=== PATIENT | female | born 1950 | race Caucasian/White ===

== ENCOUNTER → 2016-12-02 | Outpatient (CLI) | payer OTHER | LOC: FIMAGING 09:48 | PROVIDERS: ATTEND Specialist | DX: N28.89 Other specified disorders of kidney and ureter (principal); K80.20 Calculus of gallbladder without cholecystitis without obstruction ==

== ENCOUNTER → 2017-07-26 | Outpatient (CLI) | payer OTHER | LOC: BMCIMAGING 13:32 | PROVIDERS: ATTEND Internal Medicine Rheumatology | DX: R05 Cough (principal) ==

== ENCOUNTER → 2017-08-19 | Outpatient (CLI) | payer OTHER | LOC: FIMAGING 11:07 | PROVIDERS: ATTEND Surgery | DX: Z12.31 Encounter for screening mammogram for malignant neoplasm of breast (principal); Z80.3 Family history of malignant neoplasm of breast | CPT/HCPCS: G0202 ==

== ENCOUNTER → 2017-10-27 | Outpatient (CLI) | payer OTHER | LOC: BMCIMAGING 14:59 | PROVIDERS: ATTEND Internal Medicine Rheumatology | DX: M18.0 Bilateral primary osteoarthritis of first carpometacarpal joints (principal); M19.041 Primary osteoarthritis, right hand; M19.042 Primary osteoarthritis, left hand; M85.441 Solitary bone cyst, right hand; M85.442 Solitary bone cyst, left hand ==

== ENCOUNTER → 2017-12-16 | Outpatient (CLI) | payer OTHER | LOC: BMCIMAGING 15:12 | PROVIDERS: ATTEND Specialist | DX: C64.2 Malignant neoplasm of left kidney, except renal pelvis (principal) ==

== ENCOUNTER → 2018-01-19 | Outpatient (CLI) | payer OTHER ==
[~2018-01-19] MED LIST: IOPAMIDOL (ISOVUE-300) 100 ML BTL ONE
== END ==
LOC: FIMAGING 11:45
PROVIDERS: ATTEND Specialist
DX: N28.89 Other specified disorders of kidney and ureter (principal); K80.20 Calculus of gallbladder without cholecystitis without obstruction
CPT/HCPCS: 74170; Q9967

== ENCOUNTER → 2018-07-28 | Outpatient (CLI) | payer OTHER | LOC: BHFA 14:00 | PROVIDERS: ATTEND Internal Medicine Cardiovascular Disease | DX: R06.02 Shortness of breath (principal) | CPT/HCPCS: 78452; 93017; A9500 ==

== ENCOUNTER → 2018-07-29 | Outpatient (CLI) | payer OTHER | LOC: BHFA 11:30 | PROVIDERS: ATTEND Internal Medicine | DX: R06.02 Shortness of breath (principal) ==

== ENCOUNTER → 2018-08-16 | Outpatient (CLI) | payer OTHER | LOC: FIMAGING 13:34 | PROVIDERS: ATTEND Internal Medicine | DX: E04.2 Nontoxic multinodular goiter (principal) ==

== ENCOUNTER → 2018-08-30 | Outpatient (CLI) | payer OTHER | LOC: FIMAGING 14:53 | PROVIDERS: ATTEND Surgery | DX: Z12.31 Encounter for screening mammogram for malignant neoplasm of breast (principal); Z80.3 Family history of malignant neoplasm of breast ==

== ENCOUNTER → 2019-01-27 | Outpatient (CLI) | payer OTHER | LOC: FIMAGING 14:27 | PROVIDERS: ATTEND Specialist | DX: D41.02 Neoplasm of uncertain behavior of left kidney (principal) ==

== ENCOUNTER 2019-02-03 14:59 | Emergency (ER) | payer OTHER ==
--- NOTE | 2019-02-03 15:12 | EDPHY ---
H & P Stated Complaint: abd pain x2 week, shoulder/back pain since last night Time Seen by Provider: 02/03/19 15:12 - Personal History Current Tetanus/Diphtheria Vaccine: Yes Current Tetanus Diphtheria and Acellular Pertussis (TDAP): Yes - Medical/Surgical History Hx Asthma: No Hx Chronic Respiratory Disease: No Hx Diabetes: No Hx Cardiac Disease: No Hx Renal Disease: No Hx Cirrhosis: No Hx Alcoholism: No Hx HIV/AIDS: No Hx Splenectomy or Spleen Trauma: No Other PMH: RA, Factor 5, DVT after lumbar surgery in 2011 - Social History Smoking Status: Never smoked Constitutional: Initial Vital Signs Temperature (C) 36.4 C 02/03/19 15:01 Heart Rate 80 02/03/19 15:01 Respiratory Rate 16 02/03/19 15:01 Blood Pressure 144/86 H 02/03/19 15:01 O2 Sat (%) 98 02/03/19 15:01 O2 Delivery Mode Room Air Allergies/Adverse Reactions: No Known Allergies Allergy (Unverified 12/07/09 11:56) Home Medications: Medication Instructions Recorded Aspirin [Aspirin 81mg (*)] 81 mg PO DAILY 10/01/15 Calcium Carb W/Vit D [Calcium Carb 500 mg PO DAILY 10/01/15 W/Vit D 500/200 (*)] Cholecalciferol Vit D3 [Vitamin D3 2,000 units PO DAILY 10/01/15 2000 units] Herbals/Supplements -Info Only 1 ea PO DAILY 10/01/15 Lovastatin [Altoprev] 40 mg PO HS 10/01/15 Methotrexate Sodium [Rheumatrex] 12.5 mg PO WE 10/01/15 Parrott-3 Fatty Acids [Fish Oil 1000 1,000 mg PO DAILY 10/01/15 mg (*)] Medical Decision Making - Diagnostics Imaging Results: Imaging Impressions Abdomen CT 02/03/19 15:21 Impression: 1. Moderate constipation. No evidence for diverticulitis. 2. Cholelithiasis. 3. 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 4. Multilevel degenerative disk and degenerative joint disease in the lumbar spine. Results called and discussed with Otis Silva MD on 02/03/2019 at 16:10. Imaging: Discussed imaging studies w/ call or contact centre operator Radiologist, I viewed and interpreted images myself ED Course/Re-evaluation: CHIEF COMPLAINT: Abdominal pain, back pain HISTORY OF PRESENT ILLNESS: The patient is a 68 y/o female with a history of rheumatoid arthritis, Factor 5 Leiden, DVT, appendectomy, and lumbar surgery complaining of abdominal pain onset 2 days ago and back pain onset last night. For the last several weeks the patient has been travelling via plane and a car. During this travelling she developed an "aching" stomach without any nausea or vomiting. Starting last night at 17:00, 22 hours ago, she developed intermittent back pain for 3 hours. She became concerned that she developed a blood clot due to her clotting factor. No fever, headache, body aches, lightheadedness, chest pain, heart palpitations, shortness of breath, cough, urinary or bowel complaints, numbness , paresthesias. REVIEW OF SYSTEMS: A comprehensive 10 system review of systems is otherwise negative aside from elements mentioned in the history of present illness and medical decision making. PHYSICAL EXAM: HR, BP, O2 Sat, RR. Temp noted General Appearance: Alert, well hydrated, appropriate, and non-toxic appearing. Head: Atraumatic without scalp tenderness or obvious injury Eyes: Pupils equal, round, reactive to light and accommodation, EOMI, no trauma , no injection. Ears: Clear bilaterally, no perforation, normal landmarks Nose: Atraumatic, no rhinorrhea, clear. Throat: There is no erythema or exudates, no lesions, normal tonsils, mucus membranes moist. Neck: Supple, 2+ carotid upstroke, nontender, no lymphadenopathy. Respiratory: No retractions, no distress, no wheezes, and no accessory muscle use. Lungs are clear to auscultation bilaterally. Cardiovascular: Regular rate and rhythm, no murmurs, rubs, or gallops. Bilateral carotid, radial, dorsalis pedis, and posterior tibial pulses intact. Good capillary refill all extremities. Gastrointestinal: Mildly bloated abdomen. Abdomen is soft, nontender, no masses , no rebound, no guarding, no peritoneal signs. Musculoskeletal: Normal active ROM of all extremities, atraumatic. Neurological: Alert, appropriate, and interactive. The patient has normal DTRs and non-focal cranial nerves, motor, sensory, and cerebellar exam. Skin: No rashes, good turgor, no nodules on palpation. Past medical history: Rheumatoid arthritis, Factor 5 Leiden, DVT, gallstone Past surgical history: Lumbar surgery, appendectomy, hysterectomy Family history: Denies Social history: Lives in [place], retired, DIAGNOSTICS/PROCEDURES/CRITICAL CARE TIME: Abdominopelvic CT: No acute findings. Chest CTA: No acute findings. DIFFERENTIAL DIAGNOSIS: The differential diagnosis for the patient's back pain included but was not limited to musculoskeletal pain, epidural abscess, herniated disk, spinal fracture, and intra-abdominal causes including urinary system. The differential diagnosis for the patient's abdominal pain included but was not limited to ovarian cyst, pelvic inflammatory disease, ovarian torsion, urinary tract infection, ectopic , cholecystitis, and appendicitis. MEDICAL DECISION MAKING: The patient is a 68 y/o female with a history of rheumatoid arthritis, Factor 5 Leiden, DVT, appendectomy, and lumbar surgery presenting with abdominal pain onset 2 days ago and back pain onset last night. For the last several weeks the patient has been travelling via plane and a car. During this travelling she developed an "aching" stomach without any nausea or vomiting. Starting last night at 17:00, 22 hours ago, she developed intermittent back pain for 3 hours. She has a normal physial exam besides a bloated abdomen. Labs ordered including a d-dimer, which will be sensitive for a possible clot. Abdominopelvic CT ordered; 1L IV NS administered. 1608: I spoke with Dr. Aden, radiologist, regarding this patient's abdominopelvic CT. There are no acute findings. However, after reviewing patient 's labs she has an elevated d-dimer. Chest CTA ordered. 1705: I spoke with Dr. Sylvester, radiologist, who reports that there are no acute findings on the patient's chest CTA. There are no additional abnormal lab findings. 1710: Reassessed patient and discussed imaging and laboratory findings. I have advised her to follow up with her PCP. Return precautions provided; patient is comfortable with this plan. - Data Points Laboratory Results: Laboratory Results 02/03/19 15:25 02/03/19 15:25 02/03/19 02/03/19 02/03/19 15:33 15:32 15:25 WBC RBC Hgb POC Hgb 14.6 gm/dL gm/dL (12.6-16.3) Hct POC Hct 43 % % (38-47) MCV MCH MCHC RDW Plt Count MPV Neut % (Auto) Lymph % (Auto) [place] % (Auto) Eos % (Auto) Baso % (Auto) Nucleat RBC Rel Count Absolute Neuts (auto) Absolute Lymphs (auto) Absolute Monos (auto) Absolute Eos (auto) Absolute Basos (auto) Absolute Nucleated RBC Immature Gran % Immature Gran # D-Dimer 1.39 ug/mLFEU H ug/mLFEU (0.00-0.50) POC Sodium 140 mEq/L mEq/L (135-145) Sodium POC Potassium 3.9 mEq/L mEq/L (3.3-5.0) Potassium POC Chloride 105 mEq/L mEq/L (97-110) Chloride Carbon Dioxide POC Total CO2 25 mEq/L mEq/L (22-31) Anion Gap POC BUN 20 mg/dL mg/dL (7-23) BUN Creatinine POC Creatinine 0.8 mg/dL mg/dL (0.6-1.0) Estimated GFR Glucose POC Glucose 104 mg/dL H mg/dL (70-100) Calcium Magnesium Total Bilirubin Conjugated Bilirubin Unconjugated Bilirubin AST ALT Alkaline Phosphatase POC Troponin I 0.00 ng/mL ng/mL (0.00-0.08) Total Protein Albumin Lipase 02/03/19 02/03/19 15:25 15:25 WBC 4.74 10^3/uL 10^3/uL (3.80-9.50) RBC 4.38 10^6/uL 10^6/uL (4.18-5.33) Hgb 14.2 g/dL g/dL (12.6-16.3) POC Hgb Hct 41.9 % % (38.0-47.0) POC Hct MCV 95.7 fL fL (81.5-99.8) MCH 32.4 pg pg (27.9-34.1) MCHC 33.9 g/dL g/dL (32.4-36.7) RDW 13.3 % % (11.5-15.2) Plt Count 206 10^3/uL 10^3/uL (150-400) MPV 10.6 fL fL (8.7-11.7) Neut % (Auto) 51.5 % % (39.3-74.2) Lymph % (Auto) 34.4 % % (15.0-45.0) [place] % (Auto) 10.8 % % (4.5-13.0) Eos % (Auto) 2.5 % % (0.6-7.6) Baso % (Auto) 0.4 % % (0.3-1.7) Nucleat RBC Rel Count 0.0 % % (0.0-0.2) Absolute Neuts (auto) 2.44 10^3/uL 10^3/uL (1.70-6.50) Absolute Lymphs (auto) 1.63 10^3/uL 10^3/uL (1.00-3.00) Absolute Monos (auto) 0.51 10^3/uL 10^3/uL (0.30-0.80) Absolute Eos (auto) 0.12 10^3/uL 10^3/uL (0.03-0.40) Absolute Basos (auto) 0.02 10^3/uL 10^3/uL (0.02-0.10) Absolute Nucleated RBC 0.00 10^3/uL 10^3/uL (0-0.01) Immature Gran % 0.4 % % (0.0-1.1) Immature Gran # 0.02 10^3/uL 10^3/uL (0.00-0.10) D-Dimer POC Sodium Sodium 138 mEq/L mEq/L (135-145) POC Potassium Potassium 4.1 mEq/L mEq/L (3.5-5.2) POC Chloride Chloride 104 mEq/L mEq/L (97-110) Carbon Dioxide 22 mEq/l mEq/l (22-31) POC Total CO2 Anion Gap 12 mEq/L mEq/L (6-14) POC BUN BUN 20 mg/dL mg/dL (7-23) Creatinine 0.8 mg/dL mg/dL (0.6-1.0) POC Creatinine Estimated GFR > 60 Glucose 103 mg/dL H mg/dL (70-100) POC Glucose Calcium 9.5 mg/dL mg/dL (8.5-10.4) Magnesium 2.2 mg/dL mg/dL (1.6-2.3) Total Bilirubin 0.6 mg/dL mg/dL (0.1-1.4) Conjugated Bilirubin 0.2 mg/dL mg/dL (0.0-0.5) Unconjugated Bilirubin 0.4 mg/dL mg/dL (0.0-1.1) AST 34 IU/L IU/L (14-46) ALT 49 IU/L IU/L (9-52) Alkaline Phosphatase 86 IU/L IU/L (38-126) POC Troponin I Total Protein 7.5 g/dL g/dL (6.3-8.2) Albumin 4.7 g/dL g/dL (3.5-5.0) Lipase 117 IU/L IU/L (23-300) Medications Given: Discontinued Medications Sodium Chloride (Ns) 1,000 mls @ 0 mls/hr IV EDNOW ONE; Wide Open PRN Reason: Protocol Stop: 02/03/19 15:22 Last Admin: 02/03/19 15:58 Dose: 1,000 mls Point of Care Test Results: Chemistry 02/03/19 02/03/19 15:33 15:32 POC Sodium 140 mEq/L mEq/L (135-145) POC Potassium 3.9 mEq/L mEq/L (3.3-5.0) POC Chloride 105 mEq/L mEq/L (97-110) POC Total CO2 25 mEq/L mEq/L (22-31) POC BUN 20 mg/dL mg/dL (7-23) POC Creatinine 0.8 mg/dL mg/dL (0.6-1.0) POC Glucose 104 mg/dL H mg/dL (70-100) POC Troponin I 0.00 ng/mL ng/mL (0.00-0.08) ISTAT H&H 02/03/19 15:33 POC Hgb 14.6 gm/dL gm/dL (12.6-16.3) POC Hct 43 % % (38-47) Departure - Departure Disposition: Home, Routine, Self-Care Clinical Impression: Back pain Qualifiers: Back pain location: thoracic back pain Chronicity: acute Back pain laterality: midline Qualified Code(s): M54.6 - Pain in thoracic spine Abdominal pain Qualifiers: Abdominal location: generalized Qualified Code(s): R10.84 - Generalized abdominal pain Condition: Good Instructions: Acute Abdominal Pain (ED), Back Pain (ED) Additional Instructions: 1. Follow-up with your primary doctor within 72 hours. 2. Return to the Emergency Department for fever, chest pain, shortness of breath , increasing pain or other worsening of condition. Referrals: Kaylynn De La Torre MD [Primary Care Provider] - As per Instructions Report Scribed for: Otis Silva Report Scribed by: Lola Chan Date of Report: 02/03/19 Time of Report: 15:16
[2019-02-03] MEDS ORDERED: NS 1,000 ML IV ONE (15:21)
[2019-02-03] MEDS ORDERED: IOPAMIDOL (ISOVUE-300) 100 ML BTL ONE (15:37)
[2019-02-03 15:39] LABS: PLATELET COUNT 206 10^3/uL (150-400)
[2019-02-03 17:14] VITALS: BP 149/89
== END 2019-02-03 17:18 | disposition home or self-care (01) ==
DX: M54.6 Pain in thoracic spine (principal); R10.84 Generalized abdominal pain; D17.71 Benign lipomatous neoplasm of kidney; K80.20 Calculus of gallbladder without cholecystitis without obstruction; E86.9 Volume depletion, unspecified
CPT/HCPCS: 71275; 74177; 99285; Q9967; 82435-PO; 82565-PO; 82947-PO; 84132-PO; 84295-PO; 84484-ER; 84520-PO; 85014-ER